=== PATIENT | female | born 1985 | race African-American/Black ===

== ENCOUNTER 2017-10-06 17:02 | Emergency (ER) | payer OTHER ==
[2017-10-06] MEDS ORDERED: BUPIVACAINE 0.5%-EPI 1:200000 PF 10 ML VIAL SUBQ STA (17:33)
[2017-10-06] MEDS ORDERED: BUPIVACAINE 0.5% PF 30 ML VIAL SUBQ STA (17:40)
[2017-10-06] MEDS ORDERED: BUPIVACAINE 0.5% PF 10 ML VIAL ONE (18:11)
[2017-10-06 18:17] VITALS: BP 135/97
--- NOTE | 2017-10-06 18:48 | ED Physician Documentation ---
History of Present Illness - Stated complaint Stated Complaint: RT EAR PX/EARRING - Chief complaint Chief Complaint: Heent - Additonal information Additional information: hx from pt 31 f ear pierced Dec prior scar tissue from prior earrings front of earrign deeply embedded in lobe and ant hole has closed over no erythema or dc Review of Systems Constitutional: denies: Fever PD PAST MEDICAL HISTORY - Past Medical History Past Medical History: No - Past Surgical History Past Surgical History: Yes Ortho: Carpal Tunnel surgery - Present Medications Home Medications: Ambulatory Orders Medication Instructions Recorded Confirmed Ibuprofen 600 mg PO Q6HR PRN #30 tablet 11/19/14 predniSONE [Deltasone] 40 mg PO DAILY 5 Days tablet 11/19/14 - Allergies Allergies/Adverse Reactions: Allergies Allergy/AdvReac Type Severity Reaction Status Date / Time No Known Drug Allergies Allergy Verified 10/06/17 17:53 - Social History Does the pt smoke?: No Smoking Status: Never smoker Does the pt drink ETOH?: Yes Does the pt have substance abuse?: No - Immunizations Immunizations are current?: Yes PD ED PE NORMAL - Vitals Vital signs reviewed: Yes - HEENT HEENT: Other (only post and back of earring are visible, decorative front is deeply embedded with scar tissue in the lobe of the ear) Results - Vitals Vitals: Vital Signs - 24 hr 10/06/17 10/06/17 17:48 18:16 Temperature 36.9 C 36.6 C Heart Rate 112 H 109 H Respiratory 15 14 Rate Blood Pressure 129/91 H 135/97 H O2 Saturation 99 99 Oxygen O2 Source Room air PD MEDICAL DECISION MAKING - ED course ED course: auricular block with 8 cc 0.5 marcaine with excellent anesthesia excised through scar tissue from back if ear lob to free up the decorative head of the earring and remove it intact, incision total approx 3 mm blood loss minimal Departure - Departure Disposition: 01 Home, Self Care Clinical Impression: Embedded earring of right ear Qualifiers: Encounter type: initial encounter Qualified Code(s): S00.451A - Superficial foreign body of right ear, initial encounter Condition: Good Comments: There is a small incision on the back of your ear through which the earring was removed. Please keep this clean and apply antibiotic ointment every day until healed. If the ear lobe become red or swollen or develops drainage please come back to the ER for a recheck. You ear will be numb for up to 6 hr but after that you may need some Tylenol or motrin for the pain
== END 2017-10-06 19:18 | disposition home or self-care (01) ==
LOC: ED 17:02
DX: S00.451A Superficial foreign body of right ear, initial encounter (principal); W45.8XXA Other foreign body or object entering through skin, initial encounter
CPT/HCPCS: 10120; 99281; 99283

== ENCOUNTER 2017-10-16 16:40 | Emergency (ER) | payer OTHER ==
--- NOTE | 2017-10-16 17:08 | ED Physician Documentation ---
History of Present Illness - Stated complaint Stated Complaint: R PINKJeanette INJ - Chief complaint Chief Complaint: Ext Problem - Additonal information Additional information: hx from pt 31 f denies preg to ER with pain and swelling to mid phalanx R 5th finger maybe injured at work throwing frozen items but she is not sure Review of Systems : denies: Now EGA Musculoskeletal: reports: Extremity pain PD PAST MEDICAL HISTORY - Past Medical History Past Medical History: No - Past Surgical History Past Surgical History: Yes Ortho: Carpal Tunnel surgery - Allergies Allergies/Adverse Reactions: Allergies Allergy/AdvReac Type Severity Reaction Status Date / Time No Known Drug Allergies Allergy Verified 10/16/17 16:51 - Social History Does the pt smoke?: No Smoking Status: Never smoker Does the pt drink ETOH?: Yes Does the pt have substance abuse?: No - Immunizations Immunizations are current?: Yes PD ED PE NORMAL - Vitals Vital signs reviewed: Yes - Cardiac Cardiac: RRR - Respiratory Respiratory: No respiratory distress, Clear bilaterally - Extremities Extremities: Other (R fifth finger midl swelling and TTP mid phalanx 5th finger , able to flex ext, MSV intact) Results - Vitals Vitals: Vital Signs - 24 hr 10/16/17 16:49 Temperature 36.7 C Heart Rate 84 Respiratory 18 Rate Blood Pressure 127/86 H O2 Saturation 100 Oxygen O2 Source Room air - Rads (name of study) R 5th finger Radiology: See rad report (STS no fx) Departure - Departure Disposition: 01 Home, Self Care Clinical Impression: Finger sprain Qualifiers: Encounter type: initial encounter Finger: little finger Sprain of finger site: other site Laterality: right Qualified Code(s): S63.696A - Other sprain of right little finger, initial encounter Condition: Good Instructions: ED Sprain Finger Comments: The xray shows no fracture or dislocation. Recommend wear the splint as needed for support and comfort Ice for 20 min three times a day X 3 days Motrin and/or tylenol for the pain
--- NOTE | 2017-10-16 17:39 | XRAY Report ---
EXAM: RIGHT FIFTH DIGIT RADIOGRAPHY EXAM DATE: 10/16/2017 05:30 PM. CLINICAL HISTORY: Swollen. COMPARISON: None. TECHNIQUE: 3 views. FINDINGS: Bones: Normal. No fracture or bone lesion. Joints: Normal. No subluxations. Soft Tissues: Mild soft tissue swelling. IMPRESSION: Soft tissue swelling. [facility] Referring Provider Line: [phone] SITE ID: [id number]
[2017-10-16 17:59] VITALS: BP 123/82
== END 2017-10-16 17:58 | disposition home or self-care (01) ==
LOC: ED 16:40
DX: S63.696A Other sprain of right little finger, initial encounter (principal); X58.XXXA Exposure to other specified factors, initial encounter; Y99.0 Civilian activity done for income or pay
CPT/HCPCS: 73140; 99282; 99283